=== PATIENT | female | born 2000 | race Caucasian/White ===

== ENCOUNTER 2020-08-20 18:18 | Emergency (ER) | payer MEDICAID, OTHER ==
[~2020-08-20] VITALS: Ht 172.7 cm; Wt 70.3 kg
[~2020-08-20 18:18] MED LIST: RANI25TA
[2020-08-20 21:00] VITALS: BP 115/71
[2020-08-20] MEDS ORDERED: KETOROLAC TROMETH 60MG/2ML VIAL IM ONE (21:00)
== END 2020-08-20 22:48 | disposition home or self-care (01) ==
LOC: ER 18:36
DX: M54.2 Cervicalgia (principal); M25.551 Pain in right hip; V43.62XA Car passenger injured in collision with other type car in traffic accident, initial encounter; Y93.89 Activity, other specified; Y92.488 Other paved roadways as the place of occurrence of the external cause; Y99.8 Other external cause status
CPT/HCPCS: 70450; 72100; 72125; 72170; 96372; 99285; J1885

== ENCOUNTER 2021-12-02 12:40 | Emergency (ER) | payer MEDICAID, OTHER ==
[~2021-12-02] VITALS: Ht 172.7 cm; Wt 72.6 kg
[2021-12-02] MEDS ORDERED: IBUP800T27 PO (14:42)
[2021-12-02] MEDS ORDERED: PRED20TA2 PO (14:42)
[2021-12-02] MEDS ORDERED: PROMETHAZINE HCL 25 MG/ML 1ML IM ONE (14:45)
[2021-12-02] MEDS ORDERED: MEPERIDINE HCL (50 MG/ML) 1 ML VIAL IM ONE (14:45)
[2021-12-02 15:28] VITALS: BP 102/60
== END 2021-12-02 15:25 | disposition home or self-care (01) ==
LOC: ER 12:40
DX: G89.29 Other chronic pain (principal); M54.50 Low back pain, unspecified; M54.16 Radiculopathy, lumbar region; M51.37 Other intervertebral disc degeneration, lumbosacral region; Z90.89 Acquired absence of other organs; Z79.1 Long term (current) use of non-steroidal anti-inflammatories (NSAID); Z79.899 Other long term (current) drug therapy
CPT/HCPCS: 72131; 96372; 99284; J2175; J2550